=== PATIENT | male | born 1995 | race Caucasian/White ===

== ENCOUNTER 2017-12-04 21:04 | Emergency (ER) | payer BC ==
[~2017-12-04] VITALS: Ht 188 cm; Wt 81.6 kg
[2017-12-04 22:18] LABS: Basophils # (auto) 0.1 uL; Basophils % (auto) 0.5 % (0.0-2.0); Eosinophils # (auto) 0.1 uL; Monocytes # (auto) 0.6 uL; Monocytes % (auto) 5.8 % (0.0-12.0); Neutrophils # (auto) 7.7 uL
[2017-12-04 22:20] LABS: Eosinophils % (auto) 0.7 % (0.0-7.0); Hematocrit 44.4 % (41.0-53.0); Hemoglobin 14.8 g/dL (13.5-17.5); Lymphocytes # (auto) 1.9 uL; Mean Corpuscular Hemoglobin 26.6 pg (28.0-32.0); Mean Corpuscular Hgb Conc. 33.3 g/dL (32.0-36.0); Nucleated Red Blood Cells % 0.1 %; Platelet Count (auto) 428 10^3/uL (140-450); Red Blood Cells 5.56 10^6/uL (4.5-5.90); Red Cell Distribution Width 13.2 % (11.8-14.3); White Blood Cell 10.3 10^3/uL (4.4-10.8)
[2017-12-04 22:33] LABS: BUN/Creatinine Ratio 13.7; Calcium 8.6 mg/dL (8.5-10.1); Potassium 3.7 mmol/L (3.5-5.1)
[2017-12-04 22:36] LABS: Bilirubin, Total 0.2 mg/dL (0.2-1.0); Total Protein 7.7 g/dL (6.4-8.2)
[2017-12-04] MEDS ORDERED: HYDROcodone-ACET 10/325MG TAB PO ONE (22:45)
[2017-12-05 00:32] VITALS: BP 106/57
== END 2017-12-05 01:29 | disposition home or self-care (01) ==
LOC: EDBD 21:04 → ER 21:11
DX: R56.9 Unspecified convulsions (principal)
CPT/HCPCS: 36415; 70450; 80053; 85025

== ENCOUNTER 2017-12-05 02:42 | Emergency (ER) | payer BC ==
[~2017-12-05] VITALS: Ht 188 cm; Wt 68.0 kg
[2017-12-05] MEDS ORDERED: SODIUM CHLORIDE 0.9% 1,000 ML IVB ONE (09:17)
[2017-12-05] MEDS ORDERED: cefTRIAXone 1GM/10ml IVPUSH 10 ML IV ONE (09:30)
[2017-12-05] MEDS ORDERED: LEVETIRACETAM INJ 1,000 MG in D5W 5% 100 ML IV ONE (09:30)
[2017-12-05 11:15] LABS: Urine Bacteria NONE SEEN /hpf (None Seen); Urine Blood 1+ /uL (Negative); Urine Mucus FEW (None Seen); Urine Specific Gravity 1.017 (1.001-1.035); Urine WBC 4 /hpf (0 - 3)
[2017-12-05] MEDS ORDERED: HYDROcodone-ACET 5/325MG TAB PO ONE (11:15)
[2017-12-05 11:30] LABS: Cannabinoid Screen, Urine NEGATIVE (NEGATIVE)
[2017-12-05 11:44] LABS: Alcohol, Urine < 3.0 mg/dL (0-5); Amphetamine Screen, Urine NEGATIVE (NEGATIVE); Barbiturate Scree,Urine NEGATIVE (NEGATIVE); Benzodiazephine Screen, Urine POSITIVE (NEGATIVE); Cocaine Screen, Urine NEGATIVE (NEGATIVE); Opiate Scree,Urine NEGATIVE (NEGATIVE); Phencyclidine Screen, Urine NEGATIVE (NEGATIVE)
[2017-12-05 14:37] VITALS: BP 112/78
== END 2017-12-05 13:32 | disposition home or self-care (01) ==
LOC: EDBD 02:42 → EDSEX 02:42 → ER 02:47
DX: G40.909 Epilepsy, unspecified, not intractable, without status epilepticus (principal); J32.4 Chronic pansinusitis
CPT/HCPCS: 36415; 80307; 81001; 83735; 84443; 96365; 96375; 99284; J1953; J7030; J7060

== ENCOUNTER 2021-09-10 15:47 | Emergency (ER) | payer SELFPAY ==
[~2021-09-10] VITALS: Ht 188 cm; Wt 86.2 kg
[2021-09-10 17:00] VITALS: BP 129/83
[2021-09-10 19:35] LABS: Basophils # (auto) 0 10 ^3/uL (0-0.2); Basophils % (auto) 0.2 % (0.0-2.0); Eosinophils # (auto) 0 10 ^3/uL (0-0.8); Eosinophils % (auto) 0.1 % (0.0-7.0); Hematocrit 45.7 % (41.0-53.0); Lymphocytes # (auto) 1.4 10 ^3/uL (0.4-5.4); Mean Corpuscular Hemoglobin 26.4 pg (28.0-32.0); Mean Corpuscular Hgb Conc. 32.9 g/dL (32.0-36.0); Mean Corpuscular Volume 80.3 fL (80.0-100.0); Monocytes # (auto) 0.7 10 ^3/uL (0-1.3); Monocytes % (auto) 3.6 % (0.0-12.0); Neutrophils # (auto) 17.6 10 ^3/uL (1.6-8.6); Neutrophils % (auto) 89.1 % (37.0-80.0); Red Cell Distribution Width 13.2 % (11.8-14.3); White Blood Cell 19.7 10^3/uL (4.4-10.8)
[2021-09-10 19:51] LABS: Albumin 4.2 g/dL (3.4-5.0); Calcium 9.2 mg/dL (8.5-10.1); Potassium 4.1 mmol/L (3.5-5.1)
[2021-09-10 19:57] LABS: BUN/Creatinine Ratio 11.8; Bilirubin, Total 0.4 mg/dL (0.2-1.0); Total Protein 7.4 g/dL (6.4-8.2)
== END 2021-09-10 21:20 | disposition home or self-care (01) ==
LOC: ER 15:47 → EDBD 15:47 → ER 21:20
DX: R56.9 Unspecified convulsions (principal)
CPT/HCPCS: 36415; 70450; 80053; 85025; 96365; 99284; J1953; J7060